=== PATIENT | female | born 1960 | race American Indian/Alaskan Native ===

== ENCOUNTER 2019-12-11 12:59 | Emergency (ER) | payer OTHER ==
[2019-12-11 13:29] VITALS: BP 149/83
--- NOTE | 2019-12-11 15:29 | Emergency Department Report ---
ED General Adult HPI - General Chief complaint: Skin Rash Stated complaint: POSS SHINGLES Time Seen by Provider: 12/11/19 15:24 Source: patient Mode of arrival: Ambulatory Limitations: No Limitations - History of Present Illness Initial comments: Patient is a 59-year-old female presents emergency room with complaints of a shingles outbreak to the left posterior shoulder and left upper back that began yesterday. She states initially a few days ago she noticed some tingling and itching in that area. She states that yesterday she broke out in a rash. She has associated itching, burning, tingling, pain. She denies any fever, drainage, nausea, vomiting, diarrhea. She denies any known allergies at all. Past medical history of HIV and states her CD4 count is 1000. Severity scale (0 -10): 10 - Related Data Home Medications Medication Instructions Recorded Confirmed Last Taken Motrin 800 MG tab 800 mg PO PRN PRN 02/19/18 02/19/18 Unknown Vitamin D3 10,000 unit 50,000 units PO 1XW 02/19/18 02/19/18 Unknown Previous Rx's Medication Instructions Recorded Last Taken Type Pantoprazole [Protonix] 40 mg PO QDAY #15 tablet 02/20/18 Unknown Rx Lidocaine [Lidocaine GEL] 1 applicatio TP Q6HR PRN #1 12/11/19 Unknown Rx gel..gram. Prednisone [predniSONE 10 mg 10 mg PO .TAPER #1 tab.ds.pk 12/11/19 Unknown Rx (6-Day Pack, 21 Tabs)] Valacyclovir HCl [Valacyclovir] 1,000 mg PO TID 7 Days #21 tablet 12/11/19 Unknown Rx traMADoL [Ultram 50 MG tab] 50 mg PO Q6HR PRN #12 tablet 12/11/19 Unknown Rx Allergies Allergy/AdvReac Type Severity Reaction Status Date / Time No Known Allergies Allergy Unverified 02/19/18 17:43 ED Review of Systems ROS: Stated complaint: POSS SHINGLES Other details as noted in HPI Comment: All other systems reviewed and negative ED Past Medical Hx - Past Medical History Previous Medical History?: Yes Hx Congestive Heart Failure: No Hx Diabetes: Yes (Borderline DM, diet control) Hx Arthritis: Yes Hx Asthma: No Hx COPD: No Hx Tuberculosis: Yes (Diagnosed when she was 7 and she was treated.) Hx HIV: Yes - Surgical History Past Surgical History?: Yes Additional Surgical History: umbilical hernia repair. right ankle surgery. hysterectomy - Social History Smoking Status: Never Smoker - Medications Home Medications: Home Medications Medication Instructions Recorded Confirmed Last Taken Type Motrin 800 MG tab 800 mg PO PRN PRN 02/19/18 02/19/18 Unknown History Vitamin D3 10,000 unit 50,000 units PO 1XW 02/19/18 02/19/18 Unknown History Pantoprazole [Protonix] 40 mg PO QDAY #15 tablet 02/20/18 Unknown Rx Lidocaine [Lidocaine GEL] 1 applicatio TP Q6HR PRN #1 12/11/19 Unknown Rx gel..gram. Prednisone [predniSONE 10 mg 10 mg PO .TAPER #1 tab.ds.pk 12/11/19 Unknown Rx (6-Day Pack, 21 Tabs)] Valacyclovir HCl [Valacyclovir] 1,000 mg PO TID 7 Days #21 tablet 12/11/19 Unknown Rx traMADoL [Ultram 50 MG tab] 50 mg PO Q6HR PRN #12 tablet 12/11/19 Unknown Rx ED Physical Exam - General Limitations: No Limitations General appearance: alert, in no apparent distress - Head Head exam: Present: atraumatic, normocephalic - Eye Eye exam: Present: normal appearance - ENT ENT exam: Present: mucous membranes moist - Respiratory Respiratory exam: Absent: respiratory distress, accessory muscle use - Neurological Exam Neurological exam: Present: alert, oriented X3 - Psychiatric Psychiatric exam: Present: normal affect, normal mood - Skin Skin exam: Present: warm, dry, other (small erythematous maculopapular rash present to the lef scapula region and left upper posterior shoulder, no drainage, no surrounding erythema, no fluctuance, no necrosis, no skin denduing) ED Course Vital Signs 12/11/19 13:26 Temperature 98.2 F Pulse Rate 74 Respiratory 18 Rate Blood Pressure 149/83 [Right] O2 Sat by Pulse 96 Oximetry ED Medical Decision Making - Medical Decision Making Patient is a 59-year-old female presents emergency room with complaints of a shingles outbreak to the left posterior shoulder and left upper back that began yesterday. She states initially a few days ago she noticed some tingling and itching in that area. She states that yesterday she broke out in a rash. She has associated itching, burning, tingling, pain. She denies any fever, drainage, nausea, vomiting, diarrhea. She denies any known allergies at all. Past medical history of HIV and states her CD4 count is 1000. Vitals are stable. On exam: small erythematous maculopapular rash present to the left scapula region and left upper posterior shoulder, no drainage, no surrounding erythema, no fluctuance, no necrosis, no skin denduing. Examination appears most consistent with shingles outbreak. Discussed findings with patient. Patient given prescription for valacyclovir, prednisone, lidocaine gel, tramadol. Advised patient to please use medication as prescribed. Follow-up with your primary care doctor. Return to emergency room for any new or worsening symptoms. Critical care attestation.: If time is entered above; I have spent that time in minutes in the direct care of this critically ill patient, excluding procedure time. ED Disposition Clinical Impression: Herpes zoster Qualifiers: Herpes zoster complications: without complications Qualified Code(s): B02.9 - Zoster without complications Disposition: - TO HOME OR SELFCARE Is pt being admited?: No Does the pt Need Aspirin: No Condition: Stable Instructions: Herpes Zoster (ED) Additional Instructions: please use medication as prescribed. Do not drive or operate machinery while taking pain medication. Follow-up with your primary care doctor. Return to emergency room for any new or worsening symptoms. Prescriptions: Lidocaine [Lidocaine GEL] 1 applicatio TP Q6HR PRN #1 gel..gram. PRN Reason: pain Prednisone [predniSONE 10 mg (6-Day Pack, 21 Tabs)] 10 mg PO .TAPER #1 tab.ds.pk traMADoL [Ultram 50 MG tab] 50 mg PO Q6HR PRN #12 tablet PRN Reason: Pain , Severe (7-10) Valacyclovir HCl [Valacyclovir] 1,000 mg PO TID 7 Days #21 tablet Referrals: your, primary care doctor [Other] - 2-3 Days Time of Disposition: 15:29 Print Language: SPANISH
== END 2019-12-11 16:55 | disposition home or self-care (01) ==
LOC: ED 12:59
DX: B02.8 Zoster with other complications (principal); E11.9 Type 2 diabetes mellitus without complications; M13.88 Other specified arthritis, other site; Z90.710 Acquired absence of both cervix and uterus; Z98.890 Other specified postprocedural states; Z79.899 Other long term (current) drug therapy
CPT/HCPCS: 99281